=== PATIENT | male | born 1995 | race Caucasian/White ===

== ENCOUNTER 2020-10-11 14:49 | Emergency (ER) | payer MEDICAID ==
[~2020-10-11] VITALS: Ht 188 cm; Wt 104.3 kg
[~2020-10-11 14:49] MED LIST: IBUPROFEN600 MG ORAL
--- NOTE | 2020-10-11 14:49 | NUR ---
ED Nurse Note: Patient from street and brought in by ambulance due to SI report. Per EMS, patient called 911 and states that he wants to hurt himself but has no specific plans. History of psych but unable to specify diagnosis and does not take any medications. Patient is AAO x4, ambulatory with non labored breathing. Denies presence of pain.
[2020-10-11 14:50] VITALS: BP 135/80
--- NOTE | 2020-10-11 14:56 | NUR ---
ED Nurse Note: Placed belongings on psych locker #3.
--- NOTE | 2020-10-11 15:17 | Emergency Room Report ---
History of Present Illness General Chief Complaint: Behavioral Complaint Source: Patient Present Illness HPI Patient is a 25-year-old male brought in by ambulance after increased with suicidal thoughts. He reports having onset of symptoms approximately 3 days ago. Reports having recent psychiatric hospitalization. States he had prior history of bipolar. Denies any other medical history. Had reportedly recently been discharged from psychiatric facility but cannot state where this is. 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 Patient History Reviewed Nursing Documentation: PMH: Agreed; PSxH: Agreed Nursing Documentation-PMH Hx Hypertension: Yes History Of Psychiatric Problem: Yes Hx Seizures: Yes Review of Systems All Other Systems: negative except mentioned in HPI Physical Exam Vital Signs Date Time Temp Pulse Resp B/P (MAP) Pulse Ox O2 Delivery O2 Flow Rate FiO2 10/11/20 14:39 98.2 105 20 146/83 (104) 98 Room Air Sp02 EP Interpretation: reviewed, normal General Appearance: alert/responsive, no apparent distress, GCS 15, non-toxic Head: atraumatic Eyes: PERRL, lids + conjunctiva normal ENT: hearing intact, no angioedema Neck: supple/symm/no masses, no meningismus Respiratory: effort normal, no wheezing, chest symmetrical Cardiovascular: regular rate, rhythm, no edema Cardiovascular #2: 2+ carotid (R), 2+ carotid (L), 2+ dorsalis pedis (R), 2+ dorsalis pedis (L) Gastrointestinal: non-tender, no mass, non-distended, no rebound/guarding, normal bowel sounds Musculoskeletal: gait & station normal, normal ROM, strength & tone normal, non-tender Neurologic: normal inspection, CN II-XII intact, oriented x3, sensory intact, normal speech Psychiatric: normal inspection Skin: no rash, well hydrated Lymphatic: normal inspection Medical Decision Making Diagnostic Impression: Primary Impression: Bipolar disorder ER Course Patient presented for reported suicidal thoughts. Differential diagnosis include was not limited to depression, substance abuse, among others. Because of complexity of patient's case laboratory tests and were ordered. Patient was noted be asymptomatic in terms of coronavirus however coronavirus testing was ordered due to patient's need for psychiatric clearance. Patient appears to be stable for psychiatric evaluation.patient is medically cleared. Labs Test 10/11/20 15:30 10/11/20 15:50 White Blood Count 8.9 K/UL (4.8-10.8) Red Blood Count 4.50 M/UL (4.70-6.10) Hemoglobin 12.8 G/DL (14.2-18.0) Hematocrit 37.9 % (42.0-52.0) Mean Corpuscular Volume 84 FL (80-99) Mean Corpuscular Hemoglobin 28.6 PG (27.0-31.0) Mean Corpuscular Hemoglobin Concent 33.9 G/DL (32.0-36.0) Red Cell Distribution Width 13.5 % (11.6-14.8) Platelet Count 232 K/UL (150-450) Mean Platelet Volume 8.9 FL (6.5-10.1) Neutrophils (%) (Auto) 65.8 % (45.0-75.0) Lymphocytes (%) (Auto) 20.1 % (20.0-45.0) Monocytes (%) (Auto) 10.0 % (1.0-10.0) Eosinophils (%) (Auto) 2.9 % (0.0-3.0) Basophils (%) (Auto) 1.1 % (0.0-2.0) Sodium Level 135 MMOL/L (136-145) Potassium Level 3.6 MMOL/L (3.5-5.1) Chloride Level 102 MMOL/L (98-107) Carbon Dioxide Level 21 MMOL/L (21-32) Anion Gap 12 mmol/L (5-15) Blood Urea Nitrogen 17 mg/dL (7-18) Creatinine 0.8 MG/DL (0.55-1.30) Estimat Glomerular Filtration Rate > 60 mL/min (>60) Glucose Level 104 MG/DL (74-106) Calcium Level 8.4 MG/DL (8.5-10.1) Total Bilirubin 0.2 MG/DL (0.2-1.0) Aspartate Amino Transf (AST/SGOT) 37 U/L (15-37) Alanine Aminotransferase (ALT/SGPT) 27 U/L (12-78) Alkaline Phosphatase 105 U/L (46-116) Total Protein 7.7 G/DL (6.4-8.2) Albumin 3.6 G/DL (3.4-5.0) Globulin 4.1 g/dL Albumin/Globulin Ratio 0.9 (1.0-2.7) Salicylates Level 2.2 ug/mL (2.8-20) Acetaminophen Level < 2 MCG/ML (10-30) Serum Alcohol < 3 mg/dL Urine Opiates Screen Negative (NEGATIVE) Urine Barbiturates Screen Negative (NEGATIVE) Phencyclidine (PCP) Screen Negative (NEGATIVE) Urine Amphetamines Screen Positive (NEGATIVE) Urine Benzodiazepines Screen Negative (NEGATIVE) Urine Cocaine Screen Negative (NEGATIVE) Urine Marijuana (THC) Screen Positive (NEGATIVE) Last Vital Signs Date Time Temp Pulse Resp B/P (MAP) Pulse Ox O2 Delivery O2 Flow Rate FiO2 10/11/20 14:49 105 20 Room Air 10/11/20 14:39 98.2 146/83 (104) 98 Status: unchanged Disposition: ADMITTED INPATIENT Condition: Stable Jay Escamilla MD Oct 11, 2020 15:17
--- NOTE | 2020-10-11 15:30 | NUR ---
ED Nurse Note: Patient refused to provide urine sample at this time. Water provided to patient.
[2020-10-11 16:10] LABS: BASOPHILS % (AUTO) 1.1 % (0.0-2.0); EOSINOPHILS % (AUTO) 2.9 % (0.0-3.0); HEMATOCRIT 37.9 % (42.0-52.0); HEMOGLOBIN 12.8 G/DL (14.2-18.0); LYMPHOCYTES % (AUTO) 20.1 % (20.0-45.0); MEAN CORPUSCULAR VOLUME 84 FL (80-99); NEUTROPHILS % (AUTO) 65.8 % (45.0-75.0); PLATELET COUNT 232 K/UL (150-450); RED CELL DISTRIBUTION WIDTH 13.5 % (11.6-14.8); WHITE BLOOD COUNT 8.9 K/UL (4.8-10.8)
[2020-10-11 16:21] LABS: ANION GAP 12 mmol/L (5-15); BLOOD UREA NITROGEN 17 mg/dL (7-18); CALCIUM 8.4 MG/DL (8.5-10.1); CARBON DIOXIDE 21 MMOL/L (21-32); CHLORIDE 102 MMOL/L (98-107); CREATININE 0.8 MG/DL (0.55-1.30); POTASSIUM 3.6 MMOL/L (3.5-5.1); SODIUM 135 MMOL/L (136-145)
[2020-10-11 16:26] LABS: ALANINE AMINOTRANSFERASE 27 U/L (12-78); ALBUMIN 3.6 G/DL (3.4-5.0); ALBUMIN/GLOBULIN RATIO 0.9 (1.0-2.7); ALKALINE PHOSPHATASE 105 U/L (46-116); ASPARTATE AMINO TRANSFERASE 37 U/L (15-37); BILIRUBIN,TOTAL 0.2 MG/DL (0.2-1.0)
--- NOTE | 2020-10-11 17:04 | NUR ---
ED Nurse Note: [place] and Juice provided to patient.
[2020-10-11 18:53] VITALS: BP 146/83
--- NOTE | 2020-10-11 19:17 | NUR ---
HAND-OFF: Report given to Pearl Mendoza RN.
--- NOTE | 2020-10-11 19:30 | NUR ---
PT RECEIVED AND REPORT FROM DAY SENA PEREZ WITHPT
--- NOTE | 2020-10-11 22:00 | NUR ---
SITTER WITH PT PT GIVEN SANDWICH AND JUICE ADARSH WELL CALM COOPERATIVE
--- NOTE | 2020-10-12 | NUR ---
PT SLEEPING RESP EVEN SITTER WITHPT
--- NOTE | 2020-10-12 02:28 | NUR ---
PT VOIDED URINE IN URINAL RETURNED TO SLEEP SITTER WITH PT
[2020-10-12 04:03] VITALS: BP 132/80
--- NOTE | 2020-10-12 04:05 | NUR ---
PT SLEEPING REWP EVEN
--- NOTE | 2020-10-12 05:29 | NUR ---
DR REY TO KARLA PT
--- NOTE | 2020-10-12 06:16 | Emergency Room Report ---
Physical Exam Vital Signs Date Time Temp Pulse Resp B/P (MAP) Pulse Ox O2 Delivery O2 Flow Rate FiO2 10/11/20 14:39 98.2 105 20 146/83 (104) 98 Room Air Medical Decision Making Diagnostic Impression: Primary Impression: Bipolar disorder ER Course Assumed care of the patient from the previous provider at approximately 0600. Please refer to initial note for full history and physical exam. Briefly, 25-year-old male boarding in emergency department pending placement in psychiatric facility for voluntary evaluation of suicidal ideation.Patient tested positive for amphetamines and marijuana. Other labs are within normal limits. He is medically cleared for psychiatric placement. Last Vital Signs Date Time Temp Pulse Resp B/P (MAP) Pulse Ox O2 Delivery O2 Flow Rate FiO2 10/12/20 04:03 98.4 88 18 132/80 98 Room Air Disposition: ADMITTED INPATIENT Condition: Stable Referrals: NOT CHOSEN IPA/,REFERRING (PCP) Tang Glasgow MD Oct 12, 2020 06:16
[2020-10-12 07:42] VITALS: BP 129/78
--- NOTE | 2020-10-12 07:44 | NUR ---
ED Nurse Note: Pt on bed, asleep, breathing even and unlabored, no acute distress noted.
--- NOTE | 2020-10-12 11:45 | NUR ---
ED Nurse Note: pt consumed lunch tray at bed, no acute distress noted.
[2020-10-12 12:28] VITALS: BP 131/81
--- NOTE | 2020-10-12 14:58 | Emergency Room Report ---
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 Glasgow. He remained hemodynamically stable and neurovascularly intact. He was clinically sober. He was evaluated by the psychiatrist Dr. Shearer who deemed the patient stable for discharge. Patient was not expressing any suicidal ideation at this time. He was given a taxi voucher and instructions to go to a psychiatric hospital if he is feeling any feelings of suicidal ideation or homicidal ideation. Patient expressed understanding. Not a danger to himself or others at this time. Discharged in good condition. Last Vital Signs Date Time Temp Pulse Resp B/P (MAP) Pulse Ox O2 Delivery O2 Flow Rate FiO2 10/12/20 12:28 98.2 81 21 131/81 100 Room Air Disposition: HOME, SELF-CARE Condition: Stable Referrals: NOT CHOSEN IPA/,REFERRING (PCP) [facility] Psych ER - Peds ER - [facility] Intake Hotline - [facility] Patient Instructions: Self-Destructive Behavior Brant Hollis M.D. Oct 12, 2020 14:58
--- NOTE | 2020-10-12 15:00 | NUR ---
ED Nurse Note: Pt was seen and evaluated by dr [facility]
--- NOTE | 2020-10-12 15:24 | NUR ---
ED Nurse Note: afternoon snacks offered
[2020-10-12 16:32] VITALS: BP 135/82
--- NOTE | 2020-10-12 16:32 | NUR ---
ER DISCHARGE NOTE: Patient is cleared to be discharged per ERMD, pt is aox4, on room air, with stable vital signs. pt was given dc and prescription instructions, pt was able to verbalize understanding, pt id band and iv site removed without complications. pt is able to ambulate with steady gait. pt took all belongings.
--- NOTE | 2020-10-12 21:30 | Consultation ---
DATE OF CONSULTATION: 10/12/2020 HISTORY OF PRESENT ILLNESS: This is a 25-year-old male with a history of meth and cannabis abuse who has been admitted to the hospital for medical stabilization. The patient stated that he has a long history of drug use and he has been in and out of the hospital. The patient has poor insight, not following up with a psychiatrist after discharge, nor with the therapist. The patient is noncompliant with his medications. PAST PSYCHIATRIC HISTORY: Several psychiatric admissions. PAST MEDICAL HISTORY: Nonsignificant. ALLERGIES: No known drug allergies. SUBSTANCE ABUSE HISTORY: Significant for cannabis and meth. MENTAL STATUS EXAMINATION: He is alert and oriented to times self, place, situation, and date. Mood is neutral. constricted, congruent with mood. Thought process is concrete. Thought content, no suicidal ideation. Insight and judgment are fair. ASSESSMENT: [place] I Bipolar disorder. Substance use disorder. [place] II Deferred. [place] III . [place] IV Low. [place] V 20 PLAN: 1. We will start the patient on a mood stabilizer. 2. The patient is not an imminent danger to self or others. 3. No 5150. 4. The patient will be discharged with a followup plan with a psychiatrist. William Shearer M.D. DR: Armen JOB#: [id number] CC:
== END 2020-10-12 16:32 | disposition home or self-care (01) ==
LOC: EDBD 14:49 → EMR 16:22
DX: F31.9 Bipolar disorder, unspecified (principal); I10 Essential (primary) hypertension; G40.909 Epilepsy, unspecified, not intractable, without status epilepticus; F15.10 Other stimulant abuse, uncomplicated; F12.10 Cannabis abuse, uncomplicated
CPT/HCPCS: 36415; 80053; 80307; 85025; G0480; G0481; U0002; Z7502; 99285